=== PATIENT | female | born 1995 | race American Indian/Alaskan Native ===

== ENCOUNTER 2016-09-06 21:51 | Outpatient (CLI) | payer MEDICAID ==
[2016-09-06] MEDS ORDERED: LACTATED RINGERS 500 ML IV ONE (22:17)
[2016-09-06 22:20] VITALS: BP 109/58
[2016-09-06 23:12] LABS: Bacteria,Urine 1+ /HPF (Negative); Bilirubin,Urine NEG (Negative); Blood,Urine NEG (Negative); Ketones,Urine NEG (Negative); Leukocyte Esterase,Urine LG (Negative); Mucus,Urine FEW /HPF; Nitrite,Urine NEG (Negative); Protein,Urine <15 mg/dL mg/dL (Negative); Urobilinogen,Urine < 2.0 mg/dL (<2.0)
== END 2016-09-06 23:44 | disposition home or self-care (01) ==
LOC: TRG 21:51 → LD 22:06 → TRG 23:44
PROVIDERS: ATTEND Obstetrics & Gynecology
DX: O47.02 False labor before 37 completed weeks of gestation, second trimester (principal); Z3A.20 20 weeks gestation of pregnancy
CPT/HCPCS: 81001; J7120

== ENCOUNTER 2016-10-22 23:53 | Outpatient (CLI) | payer MEDICAID ==
[2016-10-23] MEDS ORDERED: LACTATED RINGERS 1,000 ML ONE (01:04)
[2016-10-23] MEDS ORDERED: LACTATED RINGERS 500 ML IV ONE (01:13)
[2016-10-23 01:24] LABS: Bilirubin,Urine NEG (Negative); Blood,Urine NEG (Negative); Ketones,Urine NEG (Negative); Leukocyte Esterase,Urine NEG (Negative); Mucus,Urine 2+ /HPF; Nitrite,Urine NEG (Negative); Urobilinogen,Urine < 2.0 mg/dL (<2.0)
[2016-10-23] MEDS ORDERED: BRETHINE IVP ONE (01:48)
== END 2016-10-23 02:35 | disposition home or self-care (01) ==
LOC: TRG 23:53
PROVIDERS: ATTEND Obstetrics & Gynecology
DX: O47.02 False labor before 37 completed weeks of gestation, second trimester (principal); Z3A.26 26 weeks gestation of pregnancy
CPT/HCPCS: 81001; 96360; 96372; J3105; J7120

== ENCOUNTER 2016-11-17 18:32 | Outpatient (CLI) | payer MEDICAID ==
[2016-11-17 19:00] VITALS: BP 113/70
[2016-11-17 19:37] LABS: Bacteria,Urine 1+ /HPF (Negative); Bilirubin,Urine NEG (Negative); Blood,Urine NEG (Negative); Ketones,Urine NEG (Negative); Leukocyte Esterase,Urine TR (Negative); Mucus,Urine 2+ /HPF; Nitrite,Urine NEG (Negative); Protein,Urine <15 mg/dL mg/dL (Negative); Uric Acid Crystals,Urine 1+
[2016-11-17] MEDS ORDERED: LACTATED RINGERS 1,000 ML IV ONE (20:00)
== END 2016-11-17 20:30 | disposition home or self-care (01) ==
LOC: TRG 18:32
PROVIDERS: ATTEND Obstetrics & Gynecology
DX: O47.03 False labor before 37 completed weeks of gestation, third trimester (principal); Z3A.30 30 weeks gestation of pregnancy
CPT/HCPCS: 81001

== ENCOUNTER 2016-12-12 21:57 | Outpatient (CLI) | payer MEDICAID ==
[2016-12-12] MEDS ORDERED: LACTATED RINGERS 500 ML IV ONE (22:47)
[2016-12-12 22:54] VITALS: BP 120/63
== END 2016-12-12 22:58 | disposition home or self-care (01) ==
LOC: TRG 21:57
PROVIDERS: ATTEND Obstetrics & Gynecology
DX: O47.03 False labor before 37 completed weeks of gestation, third trimester (principal); Z3A.33 33 weeks gestation of pregnancy
CPT/HCPCS: 59025; J7120

== ENCOUNTER 2020-02-05 03:59 | Emergency (ER) | payer MEDICAID ==
[2020-02-05 04:48] VITALS: BP 115/80
--- NOTE | 2020-02-05 05:29 | Emergency Department Report ---
ED Eye Problem HPI - General Chief complaint: Eye Problems Stated complaint: PINK EYE IN BOTH EYES AND GARLIC METALLIC TASTE Source: patient Mode of arrival: Ambulatory Limitations: No Limitations - History of Present Illness Initial comments: Patient is a 24-year-old -[place] female with no past medical history presents to the ED with complaint of acute onset persistent nasal and sinus congestion for the last 1 week with frontal sinus pressure and mild dry cough. Patient also complains of acute onset persistent severe bilateral eye pain with redness and matting the last 2 hours. Patient states that initially be about 8 hours ago she went to bed with mildly painful right eye, with a headache but took Tylenol and went to sleep. Patient states that she woke up with worsening bilateral eye pain with matting and purulent discharge as well as worsening nasal and sinus congestion. Patient states that no one else at home is had similar symptoms. Patient denies fever, chills, vision changes, hearing loss, sore throat, nausea and vomiting, dizziness, syncope, chest pain or shortness of breath and abdominal pain. MD chief complaint: eye pain (Bilateral), eye redness, other (Nasal congestion and sinus pressure with headache) -: Sudden, week(s) (1) Onset Description: sudden, awoke with symptoms Location: both eyes Place: home If Injury: none Eye Symptoms: burning, redness, pain, discharge Severity: moderate Severity scale (0 -10): 6 If Pain, Quality: burning, aching Consistency: constant Context: recent uri Associated Symptoms: headache, cough, rhinorrhea. denies: fever, shortness of breath, other Treatments Prior to Arrival: none - Related Data Patient Tetanus UTD: Yes Home Medications Medication Instructions Recorded Confirmed Last Taken Iron [Iron 18 MG TAB] 18 mg PO QDAY 06/06/15 01/03/17 06/06/15 Previous Rx's Medication Instructions Recorded Last Taken Type Ferrous Sulfate [Feosol 325 MG tab] 325 mg PO BID #60 tablet 01/01/17 Unknown Rx HYDROcodone/APAP 5-325 [Willet 1 each PO Q6HR PRN #30 tablet 01/01/17 Unknown Rx 5/325] Ibuprofen [Motrin] 800 mg PO Q8HR PRN #30 tablet 01/01/17 Unknown Rx Vit Calc,Iron,Folic 1 each PO DAILY #30 tablet 01/01/17 Unknown Rx [ Vitamins] Azithromycin [Zithromax Z-NIYA] 250 mg PO DAILY #6 tablet 02/05/20 Unknown Rx Cetirizine HCl [Zyrtec 10mg tab] 10 mg PO DAILY #30 tablet 02/05/20 Unknown Rx Gentamicin 0.3% Ophth Soln 1 drops OP Q4H #5 ml 02/05/20 Unknown Rx Ibuprofen [Motrin] 600 mg PO Q8H PRN #30 tablet 02/05/20 Unknown Rx methylPREDNISolone [Medrol 4MG 4 mg PO DAILY #21 tab.ds.pk 02/05/20 Unknown Rx DOSEPAK (21 tabs)] Allergies Allergy/AdvReac Type Severity Reaction Status Date / Time No Known Allergies Allergy Verified 06/28/15 20:40 ED Review of Systems ROS: Stated complaint: PINK EYE IN BOTH EYES AND GARLIC METALLIC TASTE Other details as noted in HPI Constitutional: denies: chills, fever Eyes: eye pain (Bilateral), eye discharge (Bilateral). denies: vision change ENT: congestion, other (Sinus pressure). denies: ear pain, throat pain Respiratory: cough. denies: shortness of breath, wheezing Cardiovascular: denies: chest pain, palpitations Endocrine: no symptoms reported Gastrointestinal: denies: abdominal pain, nausea, diarrhea Genitourinary: denies: urgency, dysuria, discharge Musculoskeletal: denies: back pain, joint swelling, arthralgia Skin: denies: rash, lesions Neurological: headache. denies: weakness, paresthesias Psychiatric: denies: anxiety, depression Hematological/Lymphatic: denies: easy bleeding, easy bruising ED Past Medical Hx - Past Medical History Hx Hypertension: No Hx Congestive Heart Failure: No Hx Diabetes: No Hx Deep Vein Thrombosis: No Hx Renal Disease: No Hx Sickle Cell Disease: No Hx Seizures: No Hx Asthma: No Hx COPD: No Hx HIV: No Additional medical history: ANEMIA - Social History Smoking Status: Never Smoker Substance Use Type: None - Medications Home Medications: Home Medications Medication Instructions Recorded Confirmed Last Taken Type Iron [Iron 18 MG TAB] 18 mg PO QDAY 06/06/15 01/03/17 06/06/15 History Ferrous Sulfate [Feosol 325 MG tab] 325 mg PO BID #60 tablet 01/01/17 Unknown Rx HYDROcodone/APAP 5-325 [Willet 1 each PO Q6HR PRN #30 tablet 01/01/17 Unknown Rx 5/325] Ibuprofen [Motrin] 800 mg PO Q8HR PRN #30 tablet 01/01/17 Unknown Rx Vit Calc,Iron,Folic 1 each PO DAILY #30 tablet 01/01/17 Unknown Rx [ Vitamins] Azithromycin [Zithromax Z-NIYA] 250 mg PO DAILY #6 tablet 02/05/20 Unknown Rx Cetirizine HCl [Zyrtec 10mg tab] 10 mg PO DAILY #30 tablet 02/05/20 Unknown Rx Gentamicin 0.3% Ophth Soln 1 drops OP Q4H #5 ml 02/05/20 Unknown Rx Ibuprofen [Motrin] 600 mg PO Q8H PRN #30 tablet 02/05/20 Unknown Rx methylPREDNISolone [Medrol 4MG 4 mg PO DAILY #21 tab.ds.pk 02/05/20 Unknown Rx DOSEPAK (21 tabs)] ED Physical Exam - General Limitations: No Limitations General appearance: alert, in no apparent distress - Head Head exam: Present: atraumatic, normocephalic, normal inspection - Eye Eye exam: Present: PERRL, EOMI, other (Bilateral erythematous conjunctiva with mild matting and discharge). Absent: scleral icterus, periorbital swelling, periorbital tenderness Pupils: Present: normal accommodation - ENT ENT exam: Present: normal orophraynx, mucous membranes moist, TM's normal bilaterally, normal external ear exam, other (Grossly congested nasal passages; palpable frontal and maxillary sinus tenderness) - Neck Neck exam: Present: normal inspection, full ROM - Respiratory Respiratory exam: Present: normal lung sounds bilaterally. Absent: respiratory distress, wheezes, rales, stridor, chest wall tenderness, accessory muscle use, prolonged expiratory - Cardiovascular Cardiovascular Exam: Present: regular rate, normal rhythm, normal heart sounds. Absent: systolic murmur, diastolic murmur, rubs, gallop - GI/Abdominal GI/Abdominal exam: Present: soft, normal bowel sounds. Absent: tenderness, guarding, rebound, hyperactive bowel sounds, hypoactive bowel sounds, organomegaly - Extremities Exam Extremities exam: Present: normal inspection, full ROM, normal capillary refill - Back Exam Back exam: Present: normal inspection, full ROM. Absent: tenderness, CVA tenderness (R), CVA tenderness (L), muscle spasm, vertebral tenderness - Neurological Exam Neurological exam: Present: alert, oriented X3, CN II-XII intact, normal gait, reflexes normal - Psychiatric Psychiatric exam: Present: normal affect, normal mood - Skin Skin exam: Present: warm, dry, intact, normal color. Absent: rash ED Course Vital Signs 02/05/20 04:19 Temperature 98.1 F Pulse Rate 88 Respiratory 16 Rate Blood Pressure 115/80 O2 Sat by Pulse 97 Oximetry ED Medical Decision Making - Medical Decision Making This is a 24-year-old -[place] female with no past medical history presents to the ED with complaint of acute onset persistent nasal and sinus congestion for the last 1 week with frontal sinus pressure and mild dry cough. Patient also complains of acute onset persistent severe bilateral eye pain with redness and matting the last 2 hours. Patient states that initially be about 8 hours ago she went to bed with mildly painful right eye, with a headache but took Tylenol and went to sleep. Patient states that she woke up with worsening bilateral eye pain with matting and purulent discharge as well as worsening nasal and sinus congestion. Patient states that no one else at home is had similar symptoms. In the ED, patient is alert and oriented x3 and is not in distress. Patient was discharged home on medication patient feels a history and physical exam findings. Patient was advised to follow-up with her primary care physician in 5 to 7 days for reevaluation. Patient was also advised return to the ED immediately if symptoms get worse. - Differential Diagnosis Conjunctivitis; sinusitis; URI; bronchitis; Critical care attestation.: If time is entered above; I have spent that time in minutes in the direct care of this critically ill patient, excluding procedure time. ED Disposition Clinical Impression: Acute upper respiratory infection, Acute non-recurrent frontal sinusitis Acute conjunctivitis, bilateral Qualifiers: Acute conjunctivitis type: unspecified Qualified Code(s): H10.33 - Unspecified acute conjunctivitis, bilateral Disposition: DC-01 TO HOME OR SELFCARE Is pt being admited?: No Does the pt Need Aspirin: No Condition: Stable Instructions: Acute Bacterial Rhinosinusitis (ED), Conjunctivitis (ED), Upper Respiratory Infection (ED) Additional Instructions: Take medication with food, drink plenty of fluids and follow-up with your primary care physician in 7 to 10 days for reevaluation. Return to the ED immediately if symptoms get worse. Maintain high standards of hygiene especially clean illness of various surfaces including doorknobs 4 sets and utensils to prevent further transmission to other family members. Prescriptions: Gentamicin 0.3% Ophth Soln 1 drops OP Q4H #5 ml methylPREDNISolone [Medrol 4MG DOSEPAK (21 tabs)] 4 mg PO DAILY #21 tab.ds.pk Ibuprofen [Motrin] 600 mg PO Q8H PRN #30 tablet PRN Reason: Pain Azithromycin [Zithromax Z-NIYA] 250 mg PO DAILY #6 tablet Cetirizine HCl [Zyrtec 10mg tab] 10 mg PO DAILY #30 tablet Referrals: [facility] [Provider Group] - 7-10 days Forms: Work/School Release Form(ED) Time of Disposition: 05:31 Print Language: GERMAN
== END 2020-02-05 05:40 | disposition home or self-care (01) ==
LOC: ED 03:59
DX: J01.10 Acute frontal sinusitis, unspecified (principal); H10.33 Unspecified acute conjunctivitis, bilateral; Z79.1 Long term (current) use of non-steroidal anti-inflammatories (NSAID); Z79.2 Long term (current) use of antibiotics; Z79.899 Other long term (current) drug therapy
CPT/HCPCS: 99282